=== PATIENT | male | born 1970 | race Caucasian/White ===

== ENCOUNTER 2023-04-18 07:47 | Outpatient (OUT) | payer OTHER, SELFPAY ==
--- NOTE | 2023-04-18 11:40 | CA_ITS ---
Patient: ZORAN GILLETTE Exam Date: 04/18/2023 : 1970 Gender:M Ordering : KYLE RUDOLPH Admission #: [id number] Family : Order #: [id number] CLICK HERE TO VIEW EXAM ECHOCARDIOGRAM REPORT PROCEDURE: CA ECHO DOPPLER COMPLETE INDICATIONS: Cardiac resynchronization therapy defibrillator COMPARISON: None. DESCRIPTION: COMPLETE ECHOCARDIOGRAM Real-time transthoracic echocardiography with 2D, M-mode, spectral and color flow Doppler performed. QUALITY: Technical quality was adequate. LEFT VENTRICLE: Normal chamber size. Normal left ventricular wall thickness. LV EF: Global left ventricular systolic function is mildly decreased. Visual estimation of left ventricular ejection fraction is 45-50%. Global hypokinesis. DIASTOLIC: Diastolic function is indetermnate. ATRIAL SEPTUM: Inadequately seen. LEFT ATRIUM: Normal chamber size. RIGHT ATRIUM: Normal chamber size. RIGHT VENTRICLE: Normal chamber size. Normal right ventricular systolic function. Pacer wire present. TRICUSPID VALVE: Normal mobility and thickness. No stenosis with trivial regurgitation. MITRAL VALVE: Normal mobility and thickness. No evidence of mitral valve stenosis. Trivial mitral regurgitation. AORTIC VALVE: Grossly normal. No visible sclerosis. Normal leaflet mobility. No evidence of aortic valve stenosis. Trivial aortic regurgitation. AORTIC ROOT: Normal diameter and appearance. PULMONIC VALVE: Grossly normal. No stenosis. Trivial regurgitation. PERICARDIUM: No evidence of pericardial effusion. CONCLUSION: 1. Normal left ventricular systolic function is mildly decreased; visually estimated ejection fraction is 45 to 50%. 2. Diastolic function is indeterminate 3. The right ventricle is normal in size and systolic function 4. No significant valvular abnormalities Adult Echocardiography Procedure Report Left Ventricle LVEDD (3.7 - 5.6 cm): 4.77 cm LVESD (2.2 - 4.0 cm): 3.18 cm LVIVS thickness (0.6 - 1.2 cm): 0.90 cm LVPW thickness (0.5 - 1.0 cm): 1.01 cm e': 0.09 m/s E - e': 6.84 LVOT Max Gradient: 1.27 mm[Hg] LVOT Area (cm2): 0.56 m/s Peak Velocity (LVOT): 0.56 m/s Mean Velocity (LVOT): 0.38 m/s LVOT Diameter 2.23 cm Left Ventricular Ejection Fraction: 50.52 % Left Atrium LA Volume Index (2D A2C): 22.56 ml/m2 Left Atrium Systolic Dimension: 3.47 cm Mitral Valve MV E to A Ratio: 1.65 Mitral Valve A-Wave Peak Velocity: 0.39 m/s Mitral Valve E-Wave Peak Velocity: 0.65 m/s Right Ventricle RV Internal Diastolic Dimension: 3.09 cm Aorta AO Root Diam: 3.21 cm Ascending Ao Diam: 3.73 cm Aortic Valve AoV Area (Peak Carlos): 1.77 cm2, 1.77 cm2 AoV Area (VTI): 2.02 cm2, 2.02 cm2 Peak Velocity(Antegrade Flow): 1.25 m/s Peak Gradient(Antegrade Flow): 6.22 mm[Hg] Mean Velocity(Antegrade Flow): 0.80 m/s Mean Gradient(Antegrade Flow): 3.08 mm[Hg] Velocity Time Integral: 22.65 cm Tricuspid Valve Peak Velocity (Regurgitant Flow): 1.71 m/s, 2.17 m/s, 2.20 m/s Pulmonic Valve Mean Gradient: 1.65 mm[Hg], 2.01 mm[Hg] Mean Velocity: 0.59 m/s, 0.66 m/s Peak Velocity: 0.91 m/s Peak Gradient: 3.05 mm[Hg], 3.51 mm[Hg] Right Atrium Right Atrium Systolic Pressure: 47.96 ml, 47.96 ml Dictated by: Dejan Chaudhary M.D. on 04/18/2023 at 12:46 Approved by: Dejan Chaudhary M.D. on 04/18/2023 at 12:54
== END 2023-04-18 07:48 | disposition home or self-care (01) ==
PROVIDERS: Visit Provider Nurse Practitioner
DX: I44.2 Atrioventricular block, complete (principal); Z95.0 Presence of cardiac pacemaker; Z95.810 Presence of automatic (implantable) cardiac defibrillator
CPT/HCPCS: 93306